=== PATIENT | male | born 1985 | race Caucasian/White ===

== ENCOUNTER 2018-10-04 23:00 | Emergency (ER) | payer SELFPAY ==
[2018-10-04 23:09] VITALS: BP 149/75; TEMP 98.3; BMI 26.0
--- NOTE | 2018-10-04 23:36 | PDOC ---
History of Present Illness - General Chief Complaint: Redness To Affected Area Stated Complaint: KNEE PAIN Time Seen by Provider: 10/04/18 23:16 History Source: Patient - History of Present Illness Initial Comments: 10/04/18 23:40 32 year old male c/o redness and swelling x2 days to the right knee after a mosquito bite to the area. patient denies injury of trauma to the area. denies fever/ chills, streaking no pmhx Past History - Past Medical History Allergies/Adverse Reactions: Allergies Allergy/AdvReac Type Severity Reaction Status Date / Time Penicillins Allergy Verified 10/04/18 23:07 Home Medications: Ambulatory Orders Acetaminophen [Tylenol -] 1,000 mg PO Q6H PRN 10/04/18 Clindamycin [Cleocin -] 300 mg PO Q6HPO #40 capsule 10/05/18 Ibuprofen [Motrin -] 600 mg PO TID PRN #20 tablet 10/05/18 COPD: No Other medical history: chronic back problems - Suicide/Smoking/Psychosocial Hx Smoking History: Former smoker Have you smoked in the past 12 months: Yes If you are a former smoker, when did you quit?: 08/26 Information on smoking cessation initiated: No Review of Systems - Review of Systems Able to Perform ROS?: Yes Is the patient limited Nepali proficient: No Integumentary: Yes: Erythema (right knee erythema, warm and tender to touch) *Physical Exam - Vital Signs Last Vital Signs Temp Pulse Resp BP Pulse Ox 98.3 F 105 H 18 149/75 96 10/04/18 23:07 10/04/18 23:07 10/04/18 23:07 10/04/18 23:07 10/04/18 23:07 - Physical Exam General Appearance: Yes: Appropriately Dressed Cardiovascular: positive: Regular Rhythm, Regular Rate. negative: Tachycardia Musculoskeletal: positive: Normal Inspection, Other (full rom, right knee erythema, warm to touch) Extremity: positive: Normal Capillary Refill, Normal Inspection, Normal Range of Motion (able to move extremity without difficulty) Integumentary: positive: Normal Color, Dry, Warm Neurologic: positive: Fully Oriented, Alert, Normal Mood/Affect Medical Decision Making - Medical Decision Making 10/04/18 23:54 A: cellulitis to right knee P: xray skin marked patient to return in 2 days for a wound check. po antibiotics. *DC/Admit/Observation/Transfer Diagnosis at time of Disposition: Cellulitis of right knee - Discharge Dispostion Disposition: HOME - Prescriptions Prescriptions: Clindamycin [Cleocin -] 300 mg PO Q6HPO #40 capsule Ibuprofen [Motrin -] 600 mg PO TID PRN #20 tablet PRN Reason: Pain - Referrals - Patient Instructions Printed Discharge Instructions: DI for Knee Pain Additional Instructions: apply warm compress to the area take clindamycin as prescribed. return to the ER in 2 days for a wound check return immediately if you are having increased redness, streaking fever/ chills , unable to move your knee - Post Discharge Activity
[2018-10-04] MEDS ORDERED: IBUPROFEN 400 MG TABLET (FP) PO ONE (23:43)
[2018-10-05] MEDS ORDERED: CLINDAMYCIN HCL 300 MG CAPSULE PO ONE (00:08)
[2018-10-05 00:45] VITALS: PULSE 81
[2018-10-05] MEDS ORDERED: CLINDAMYCIN HCL 150 MG CAPSULE (FP) ONE (00:49)
[2018-10-05] MEDS ORDERED: IBUPROFEN 400 MG TABLET (FP) PO ONE (00:50)
--- NOTE | 2018-10-05 00:55 | PDOC ---
*Physical Exam - Vital Signs Last Vital Signs Temp Pulse Resp BP Pulse Ox 98.3 F 81 18 149/75 98 10/05/18 00:42 10/05/18 00:42 10/05/18 00:42 10/04/18 23:07 10/05/18 00:42 - Physical Exam Comments: 10/05/18 00:53 agree w/ PA exam. Medical Decision Making - Medical Decision Making 10/05/18 00:54 Cellulitis overlying knee, healthy 32 y/o male full rom no concern for joint involvement, no systemic symptoms home w/ clinda, cellulitis marked w/ pen, return to ED 48 hrs for wound check *DC/Admit/Observation/Transfer Diagnosis at time of Disposition: Cellulitis of right knee - Discharge Dispostion Disposition: HOME - Prescriptions Prescriptions: Clindamycin [Cleocin -] 300 mg PO Q6HPO #40 capsule Ibuprofen [Motrin -] 600 mg PO TID PRN #20 tablet PRN Reason: Pain - Referrals - Patient Instructions Printed Discharge Instructions: DI for Knee Pain Additional Instructions: apply warm compress to the area take clindamycin as prescribed. return to the ER in 2 days for a wound check return immediately if you are having increased redness, streaking fever/ chills , unable to move your knee - Post Discharge Activity
== END 2018-10-05 01:46 | disposition home or self-care (01) ==
LOC: JER 23:00
DX: S80.261A Insect bite (nonvenomous), right knee, initial encounter (principal); L03.115 Cellulitis of right lower limb; W57.XXXA Bitten or stung by nonvenomous insect and other nonvenomous arthropods, initial encounter; Y93.89 Activity, other specified; Y92.89 Other specified places as the place of occurrence of the external cause; Y99.8 Other external cause status
CPT/HCPCS: 73562-TC-RT-FY; 99281-25

== ENCOUNTER 2019-03-13 01:33 | Observation (INO) | payer OTHER ==
[2019-03-13 02:10] VITALS: BMI 29.7
[2019-03-13] MEDS ORDERED: ASPIRIN 81 MG CHEWABLE TABLETS PO ONE (02:42)
[2019-03-13] MEDS ORDERED: ASPIRIN 81 MG CHEWABLE TABLETS ONE (02:52)
--- NOTE | 2019-03-13 03:11 | PDOC ---
History of Present Illness - General Chief Complaint: Chest Pain Stated Complaint: CHEST PAIN Time Seen by Provider: 03/13/19 02:24 - History of Present Illness Initial Comments: 03/13/19 02:58 The patient is a 33 y/o male with a PMHx of HTN who presents to our ED c/o chest pain. Pain started around 11:30 p.m. yesterday evening after smoking hookah and is L sided, intermittent, sharp w/o radiation. Associated with shortness of breath no lightheadedness, palpitations, nausea, diaphoresis. H/o smoking starting at age [age]. Family cardiac history significant for paternal from [place] at age 61. No previous stress testing. Patient was on an anti- hypertensive between September and January 2019 however states his primar y Allergy: Penicillin - the patient states since his mother was allergic to penicillin he has never had penicillin. Past History - Past Medical History Allergies/Adverse Reactions: Allergies Allergy/AdvReac Type Severity Reaction Status Date / Time Penicillins Allergy Verified 03/13/19 02:10 Home Medications: Ambulatory Orders Acetaminophen [Tylenol -] 1,000 mg PO Q6H PRN 10/04/18 Clindamycin [Cleocin -] 300 mg PO Q6HPO #40 capsule 10/05/18 Ibuprofen [Motrin -] 600 mg PO TID PRN #20 tablet 10/05/18 COPD: No - Psycho Social/Smoking Cessation Hx Smoking History: Current some day smoker Have you smoked in the past 12 months: Yes If you are a former smoker, when did you quit?: 08/26 Information on smoking cessation initiated: No Hx Alcohol Use: No Drug/Substance Use Hx: No Review of Systems - Review of Systems Constitutional: No: Chills, Fever HEENTM: No: Blurred Vision, Recent change in vision Respiratory: No: Cough, Shortness of Breath Cardiac (ROS): Yes: Chest Pain. No: Lightheadedness, Palpitations ABD/GI: No: Constipated, Diarrhea *Physical Exam - Vital Signs Last Vital Signs Temp Pulse Resp BP Pulse Ox 98.5 F 88 16 151/92 03/13/19 01:35 03/13/19 01:35 03/13/19 01:35 03/13/19 01:35 - Physical Exam General Appearance: Yes: Nourished, Appropriately Dressed HEENT: positive: Normal Voice, Hearing Grossly Normal Neck: positive: Trachea midline, Supple Respiratory/Chest: positive: Lungs Clear, Normal Breath Sounds Cardiovascular: positive: S1, S2 Gastrointestinal/Abdominal: positive: Normal Bowel Sounds, Soft Extremity: positive: Normal Capillary Refill, Normal Inspection Integumentary: positive: Normal Color, Dry, Warm Neurologic: positive: ship engineer II-XII NML intact, Fully Oriented, Alert Heart Score/ECG Review - ECG Impressions Comment:: 03/13/19 06:34 NSR HR 82, normal intervals, no deviations, no DION/STD/TWI ED Treatment Course - LABORATORY CBC & Chemistry Diagram: 03/13/19 03:00 03/13/19 03:00 - RADIOLOGY Radiology Studies Ordered: Category Date Time Status CHEST X-RAY PORTABLE* [RAD] Stat Radiology 03/13/19 02:43 Ordered - Medications Given in the ED: ED Medications Discontinued Medications Generic Name Dose Route Start Last Admin Trade Name Freq PRN Reason Stop Dose Admin Aspirin 162 mg 03/13/19 02:42 03/13/19 02:54 Asa - PO 03/13/19 02:43 162 mg ONCE ONE Administration Medical Decision Making - Medical Decision Making 03/13/19 03:53 33 y/o male with acute onset of chest pain @ 11:30 pm yesterday evening. Daily smoker, HTN (untreated) Heart Score 3 EKG non-ischemic Will obtain Troponin x2. 03/13/19 06:09 Troponin (-) x1 03/13/19 06:50 Patient reassessed @ bedside 2 minutes of chest pain around 6:30 a.m. 03/13/19 06:55 As patient continues to have CP, will admit for r/o ACS. Patient and patient's partner @ bedside counseled on plan of care, amenable to admission. Microblog to [facility] Admitting Patient signed out to Dr. Desai (PGY-3) and Dr. Espinoza (Attending) Discharge - Discharge Information Problems reviewed: Yes Clinical Impression/Diagnosis: Chest pain Condition: Fair Disposition: HOME - Admission No - Follow up/Referral - Patient Discharge Instructions Additional Instructions: Please make an appointment to follow-up with a primary care doctor in the next 1 week. Your care is not compete until you are evaluated by a primary care doctor. We have provided a referral or you can call your insurance company for a list of doctors. Your care is not complete until you are evaluated by primary care. Return to the Emergency Department for any new/worsening or concerning symptoms. - Post Discharge Activity
[2019-03-13 04:17] LABS: BASO % 0.7 % (0-2.0); EOS % 0.4 % (0-4.5); HEMATOCRIT 42.4 % (35.4-49); HEMOGLOBIN 14.3 GM/dL (11.7-16.9); LYMPH % 30.1 % (8-40); MCH 29.1 pg (25.7-33.7); MCHC 33.7 g/dl (32.0-35.9); MEAN CELL VOLUME 86.2 fl (80-96); MEAN PLT VOLUME 10.3 fl (7.5-11.1); MONO % 9.3 % (3.8-10.2); NEUT % 59.5 % (42.8-82.8); PLATELET COUNT 174 K/MM3 (134-434); RBC 4.92 M/mm3 (4.00-5.60); WHITE BLOOD COUNT 8.7 K/mm3 (4.0-10.0)
--- NOTE | 2019-03-13 04:21 | PDOC ---
Attending Attestation - Resident Resident Name: LeticiaVioletta - ED Attending Attestation I have performed the following: I have examined & evaluated the patient, The case was reviewed & discussed with the resident, I agree w/resident's findings & plan, Exceptions are as noted - HPI HPI: 03/13/19 04:16 33yoM hx of HTN, cig smoking presnets c/o acute onset of chest pain and sob immediatley after smoking hookah tonight. No diahpresis, + mild nausea. Pain was constant x 2hrs and then lessened and became slight, intermittent. Now feeling better. no PMd, just moved back from [place]. - Physicial Exam PE: 03/13/19 04:18 NAD RRR CTABL soft NTND A&O x 3 - Medical Decision Making 03/13/19 04:19 33yoM presnets c/o acute onset of chest pain after smoking hookah, also assoc w / SOB. - labs - ekg - cxr - asa - 2tn -> if neg can DC w/referral to PMD to initiate care here in [place].
[2019-03-13 04:56] LABS: ALBUMIN 3.8 g/dl (3.4-5.0); ALK PHOS 65 U/L (45-117); ANION GAP 8 MMOL/L (8-16); BILIRUBIN,TOTAL 0.6 mg/dL (0.2-1); BLOOD UREA NITROGEN 14.1 mg/dL (7-18); CALCIUM 9.2 mg/dL (8.5-10.1); CHLORIDE 108 mmol/L (98-107); CO2 26 mmol/L (21-32); GLUCOSE,RANDOM 97 mg/dL (74-106); POTASSIUM 3.6 mmol/L (3.5-5.1); SGOT/AST 24 U/L (15-37); SGPT/ALT 45 U/L (13-61); SODIUM 142 mmol/L (136-145); TOT PROT 7.4 g/dl (6.4-8.2)
[2019-03-13 04:58] LABS: INR 0.97 (0.83-1.09); PROTHROMBIN TIME (PATIENT) 11.5 SEC (9.7-13.0)
[2019-03-13 05:00] LABS: ACTIVATED PTT 29.8 SECONDS (25.2-36.5)
--- NOTE | 2019-03-13 08:13 | PDOC ---
*Physical Exam - Vital Signs Last Vital Signs Temp Pulse Resp BP Pulse Ox 98.5 F 61 19 111/69 99 03/13/19 01:35 03/13/19 05:00 03/13/19 05:00 03/13/19 05:00 03/13/19 05:00 ED Treatment Course - LABORATORY CBC & Chemistry Diagram: 03/13/19 03:00 03/13/19 03:00 - ADDITIONAL ORDERS Additional order review: Laboratory Results 03/13/19 03/13/19 03/13/19 06:10 03:00 03:00 PT with INR INR PTT (Actin FS) Sodium 142 Potassium 3.6 Chloride 108 H Carbon Dioxide 26 Anion Gap 8 BUN 14.1 Creatinine 1.0 Est GFR (CKD-EPI)AfAm 114.91 Est GFR (CKD-EPI)NonAf 99.15 Random Glucose 97 Calcium 9.2 Magnesium 2.2 Total Bilirubin 0.6 AST 24 ALT 45 Alkaline Phosphatase 65 Creatine Kinase 307 320 H Creatine Kinase Index No Result Required. CK-MB (CK-2) < 1.0 Troponin I < 0.02 < 0.02 Total Protein 7.4 Albumin 3.8 03/13/19 03:00 PT with INR 11.50 INR 0.97 PTT (Actin FS) 29.8 Sodium Potassium Chloride Carbon Dioxide Anion Gap BUN Creatinine Est GFR (CKD-EPI)AfAm Est GFR (CKD-EPI)NonAf Random Glucose Calcium Magnesium Total Bilirubin AST ALT Alkaline Phosphatase Creatine Kinase Creatine Kinase Index CK-MB (CK-2) Troponin I Total Protein Albumin 03/13/19 03:00 RBC 4.92 MCV 86.2 MCHC 33.7 RDW 14.0 MPV 10.3 Neutrophils % 59.5 Lymphocytes % 30.1 Monocytes % 9.3 Eosinophils % 0.4 Basophils % 0.7 - Medications Given in the ED: ED Medications Discontinued Medications Generic Name Dose Route Start Last Admin Trade Name Freq PRN Reason Stop Dose Admin Aspirin 162 mg 03/13/19 02:42 03/13/19 02:54 Asa - PO 03/13/19 02:43 162 mg ONCE ONE Administration Medical Decision Making - Medical Decision Making 03/13/19 08:[address] Kelly. Patient is 33M here today with chest pain. Trop neg, ekg normal. Pending admission 2/2 repeat episode of chest pain at 6: 30. Given aspirin. Signed out to Dr Zambrano to Dr Combs's service. Discharge - Discharge Information Problems reviewed: Yes Clinical Impression/Diagnosis: Chest pain Condition: Fair Disposition: HOME - Admission Yes - Follow up/Referral - Patient Discharge Instructions Additional Instructions: Please make an appointment to follow-up with a primary care doctor in the next 1 week. Your care is not compete until you are evaluated by a primary care doctor. We have provided a referral or you can call your insurance company for a list of doctors. Your care is not complete until you are evaluated by primary care. Return to the Emergency Department for any new/worsening or concerning symptoms. - Post Discharge Activity
--- NOTE | 2019-03-13 08:17 | HP ---
CHIEF COMPLAINT: Chest Pain PCP: None HISTORY OF PRESENT ILLNESS: Pt. is a 33 y.o. M w/ PMHx. of HTN (currently not on therapy) presents for sudden onset of chest pain last night at 11:30 while playing pool and smoking Hookah. Pt. states that he had pain that radiated to his left arm, numbness/tingling in his right arm, pain in his thigh and shortness of breath. Pt. states that the pain was sharp and constant for the first few hours but gradually went away. Pt. states this has happened before but he has never had it worked up and that "this is the wake up call I need." Pt. states at the time of chest pain that it was tender to palpation, and that he also had a headache. Pt. was never diaphoretic. Pt states that he feels better now and denies any acute complaints. Pt. states that at ~6:30 AM he had a seconds episode of chest pain that has since resolved. Pt. was not active during the 2nd episode of chest pain. Pt. states that he has strong family history of heart disease and OR on his father's side of family, the youngest of which started at 62 y.o. Pt. 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 Pt. denies currently having a PCP. ER course was notable for: (1)EKG, Trop, ASA 162 (2) CBC, CMP (3) Recent Travel: Recently moved to [facility] PAST MEDICAL HISTORY: HTN PAST SURGICAL HISTORY: None Social History: Smoking: Smoked from age 13 - August 2018 2PPD, Pt. currently Vapes and smoked Hookah Alcohol: Occasional drink at special events Drugs: Medical Marijuana card, states "tries to smoke at least 1x per week" Allergies Penicillins Allergy (Verified 03/13/19 02:10)- Pt. states his mother has the allergy, he has never had Penicillin. HOME MEDICATIONS: None REVIEW OF SYSTEMS As above PHYSICAL EXAMINATION Vital Signs - 24 hr 03/13/19 03/13/19 01:35 05:00 Temperature 98.5 F Pulse Rate 88 Pulse Rate [ 61 Left Radial] Respiratory 16 19 Rate Blood Pressure 151/92 Blood Pressure 111/69 [Right Arm] O2 Sat by Pulse 99 Oximetry (%) GENERAL: Awake, alert, and fully oriented, in no acute distress. HEAD: Normal with no signs of trauma. LUNGS: Breath sounds equal, clear to auscultation bilaterally. No wheezes, and no crackles. No accessory muscle use. HEART: Regular rate and rhythm, normal S1 and S2 without murmur, rub or gallop. Non-tender to palpation. MUSCULOSKELETAL: Normal range of motion at all joints. No bony deformities or tenderness. UPPER EXTREMITIES: 2+ radial pulses, warm, well-perfused. No cyanosis. No clubbing. No peripheral edema. LOWER EXTREMITIES: 2+ dorsal pedal pulses, warm, well-perfused. No calf tenderness. No peripheral edema. NEUROLOGICAL: No focal deficits PSYCHIATRIC: Cooperative. Good eye contact. Appropriate mood and affect. SKIN: Warm, dry, normal turgor, no rashes or lesions noted, normal capillary refill. Laboratory Results - last 24 hr 03/13/19 03/13/19 03/13/19 03:00 03:00 03:00 WBC 8.7 RBC 4.92 Hgb 14.3 Hct 42.4 MCV 86.2 MCH 29.1 MCHC 33.7 RDW 14.0 Plt Count 174 MPV 10.3 Absolute Neuts (auto) 5.2 Neutrophils % 59.5 Lymphocytes % 30.1 Monocytes % 9.3 Eosinophils % 0.4 Basophils % 0.7 Nucleated RBC % 0 PT with INR 11.50 INR 0.97 PTT (Actin FS) 29.8 Sodium 142 Potassium 3.6 Chloride 108 H Carbon Dioxide 26 Anion Gap 8 BUN 14.1 Creatinine 1.0 Est GFR (CKD-EPI)AfAm 114.91 Est GFR (CKD-EPI)NonAf 99.15 Random Glucose 97 Calcium 9.2 Magnesium Total Bilirubin 0.6 AST 24 ALT 45 Alkaline Phosphatase 65 Creatine Kinase 320 H Creatine Kinase Index No Result Required. CK-MB (CK-2) < 1.0 Troponin I < 0.02 Total Protein 7.4 Albumin 3.8 03/13/19 03/13/19 03:00 06:10 WBC RBC Hgb Hct MCV MCH MCHC RDW Plt Count MPV Absolute Neuts (auto) Neutrophils % Lymphocytes % Monocytes % Eosinophils % Basophils % Nucleated RBC % PT with INR INR PTT (Actin FS) Sodium Potassium Chloride Carbon Dioxide Anion Gap BUN Creatinine Est GFR (CKD-EPI)AfAm Est GFR (CKD-EPI)NonAf Random Glucose Calcium Magnesium 2.2 Total Bilirubin AST ALT Alkaline Phosphatase Creatine Kinase 307 Creatine Kinase Index CK-MB (CK-2) Troponin I < 0.02 Total Protein Albumin ASSESSMENT/PLAN: Pt. is a 33 y.o. M w/ PMHx. of HTN (currently not on therapy) presents for sudden onset of chest pain last night at 11:30 while playing pool and smoking Hookah. #Chest Pain R/o ACS Trop Negtive x 2, f/u Final Trop EKG unremarkable, NSR, normal intervals, no ST changes, no TWI f/u Exercise Stress test advised to disconitnue smokinig, will provide nicoine gum and/or patches on discharge Outpatient Cardiology f/u PCP f/u #FEN NPO monitor electrolytes and replete as needed NPO for stress test #DVT Ppx. Early ambulation Visit type - Emergency Visit Emergency Visit: Yes ED Registration Date: 03/13/19 Care time: The patient presented to the Emergency Department on the above date and was hospitalized for further evaluation of their emergent condition. - New Patient This patient is new to me today: Yes Date on this admission: 03/13/19 - Critical Care Critical Care patient: No ATTENDING PHYSICIAN STATEMENT I saw and evaluated the patient. I reviewed the resident's note and discussed the case with the resident. I agree with the resident's findings and plan as documented. SUBJECTIVE: OBJECTIVE: ASSESSMENT AND PLAN:
--- NOTE | 2019-03-13 09:11 | EKG ---
Test Reason : Blood Pressure : / mmHG Vent. Rate : 082 BPM Atrial Rate : 082 BPM P-R Int : 150 ms QRS Dur : 100 ms QT Int : 388 ms P-R-T Axes : 050 035 026 degrees QTc Int : 453 ms NORMAL SINUS RHYTHM NORMAL ECG WHEN COMPARED WITH ECG OF 15-AUG-2008 15:00, NO SIGNIFICANT CHANGE WAS FOUND Confirmed by Víctor Washington ([id number]) on 03/13/2019 9:11:21 AM Referred By: Confirmed By:Víctor Washington
--- NOTE | 2019-03-13 09:28 | ECHO ---
Name: YULISSA VANEGAS Exam:Adult Echocardiogram Study Date: 03/13/2019 08:49 AM Age: 33 yrs Reason For Study: Chest pain Height: 71 in Weight: 212 lb BSA: 2.2 m2 MMode/2D Measurements & Calculations IVSd: 0.98 cm Ao root diam: 3.2 cm LVIDd: 4.8 cm LA dimension: 3.1 cm LVIDs: 3.5 cm LVPWd: 1.2 cm LVPWs: 1.6 cm EDV(Teich): 109.7 ml ESV(Teich): 49.3 ml LVOT diam: 2.1 cm RV S Lee: 12.0 cm/sec Doppler Measurements & Calculations MV E max lee: 66.5 cm/sec Ao V2 max: 99.5 cm/sec MV A max lee: 41.7 cm/sec Ao max P.0 mmHg MV E/A: 1.6 MV dec time: 0.12 sec DARRIAN(V,D): 3.0 cm2 LV V1 max P.1 mmHg PA V2 max: 107.6 cm/sec LV V1 max: 87.8 cm/sec PA max P.6 mmHg Med Peak E' Lee: 9.7 cm/sec Med E/e': 6.9 Lat Peak E' Lee: 13.3 cm/sec Lat E/e': 5.0 Procedure Study Quality: Fair. Left Ventricle The left ventricular size, thickness and function are normal. The left ventricular ejection fraction is normal. Ejection Fraction = 55%. Left Ventricular Filling pattern is normal for age. Right Ventricle The right ventricle is normal size. The right ventricular systolic function is normal. Atria Normal left and right atrial size and function. Mitral Valve The mitral valve leaflets appear normal. There is no evidence of stenosis, fluttering, or prolapse. T here is trace mitral regurgitation. Tricuspid Valve The tricuspid valve is normal. Aortic Valve The aortic valve is not well visualized. The aortic valve is normal in structure and function. Pulmonic Valve The pulmonic valve is not well seen, but is grossly normal. Great Vessels The aortic root is normal size. Pericardium/Pleura There is no pericardial effusion. Interpretation Summary This was essentially a normal study. Víctor Washington 03/13/2019 09:28 AM
--- NOTE | 2019-03-13 15:13 | TRE ---
Protocol Name : FRANCHESCA Max Work Load (METS*10) : 99 Time In Exercise Phase : 00:08:00 Max. Systolic BP : 178 mmHg Max Diastolic BP : 80 mmHg Max Heart Rate : 164 BPM Max Predicted Heart Rate : 188 BPM Attending Physician : MARIAH Reason For Termination : Target Heart Rate Achieved Reason for Test : CP Stress Protocol : FRANCHESCA Rest HR : 87 BPM PeakEx METs : 9.9 METS Arrhythmias : No Arrhythmias Resting ECG : Normal Recovery ECG Response (OLD) : Overall Impression : Normal stress test Chest Pain : No Chest Pain HR Response To Exercise : Normal Overall HR Response To Exercise BP Response To Exercise : Normal Resting BP with Appropriate Response Functional Capacity : moderately decreased (20% to 30%) Diagnosis : 1. NEGATIVE STRESS TEST 2. APPROPRIATE BLOOD PRESSURE RESPONSE 3. FAIR EXERCISE TOLERANCE AND CAPACITY. PATIENT EXERCISED 8 MIN INTO STAGE 4 FRANCHESCA PROTOCOL AND ACHIEVED 87% OF MPTHR 4. PATIENT REMAINED ASYMPTOMATIC. NO ECG ABNORMALITIES WERE SEEN Confirmed by MARY LEMUS MD ([id number]) on 03/13/2019 3:13:36 PM
--- NOTE | 2019-03-13 15:57 | DS ---
Physical Exam: SUBJECTIVE: Patient seen and examined. Please see HPI. OBJECTIVE: Vital Signs Period Temp Pulse Resp BP Sys/Elizabeth Pulse Ox Last 24 Hr 98.5 F 61-88 16-19 111-151/69-92 99 PHYSICAL EXAM Same as H & P LABS Laboratory Results - last 24 hr 03/13/19 03/13/19 03/13/19 03:00 03:00 03:00 WBC 8.7 RBC 4.92 Hgb 14.3 Hct 42.4 MCV 86.2 MCH 29.1 MCHC 33.7 RDW 14.0 Plt Count 174 MPV 10.3 Absolute Neuts (auto) 5.2 Neutrophils % 59.5 Lymphocytes % 30.1 Monocytes % 9.3 Eosinophils % 0.4 Basophils % 0.7 Nucleated RBC % 0 PT with INR 11.50 INR 0.97 PTT (Actin FS) 29.8 Sodium 142 Potassium 3.6 Chloride 108 H Carbon Dioxide 26 Anion Gap 8 BUN 14.1 Creatinine 1.0 Est GFR (CKD-EPI)AfAm 114.91 Est GFR (CKD-EPI)NonAf 99.15 Random Glucose 97 Calcium 9.2 Magnesium Total Bilirubin 0.6 AST 24 ALT 45 Alkaline Phosphatase 65 Creatine Kinase 320 H Creatine Kinase Index No Result Required. CK-MB (CK-2) < 1.0 Troponin I < 0.02 Total Protein 7.4 Albumin 3.8 03/13/19 03/13/19 03/13/19 03:00 06:10 09:25 WBC RBC Hgb Hct MCV MCH MCHC RDW Plt Count MPV Absolute Neuts (auto) Neutrophils % Lymphocytes % Monocytes % Eosinophils % Basophils % Nucleated RBC % PT with INR INR PTT (Actin FS) Sodium Potassium Chloride Carbon Dioxide Anion Gap BUN Creatinine Est GFR (CKD-EPI)AfAm Est GFR (CKD-EPI)NonAf Random Glucose Calcium Magnesium 2.2 Total Bilirubin AST ALT Alkaline Phosphatase Creatine Kinase 307 Creatine Kinase Index No Result Required. CK-MB (CK-2) < 1.0 Troponin I < 0.02 < 0.02 Total Protein Albumin HOSPITAL COURSE: Date of Admission:03/13/19 Date of Discharge: 03/13/19 Pt. is a 33 y.o. M w/ PMHx. of HTN( not currently on medication as BP has self- resolved) presents after episode of chest pain, was noted to have a repeat episode in ED. Pt. was monitored on telemetry, had 3 negative troponins, unremarkable EKG, negative echo and negative exercise stress test. Advised Pt. to quit smoking and to follow up with physicians as described below. Hospital course discussed and agreed upon with Pt., family and hospital staff. Minutes to complete discharge: 25 Discharge Summary Problems reviewed: Yes Reason For Visit: CHEST PAIN Condition: Improved - Instructions Diet, Activity, Other Instructions: You came in because you were having chest pain. We imaged your heart with ultrasound both at rest and after activity. The results were negative. We took blood and measured your heart function, the results were negative. We monitored you on cardiac monitoring and did not observe anything immediately concerning. We discussed cessation of smoking. Please STOP smoking. Please follow up with your Primary Care Doctor within 1 week. If you do not have one, we have provided Dr. Carter. please discuss Nicotin replacement options with your PCP at this time. Please follow up with your shipyard helper within 1 week. If you to not have one we have provided Dr. Andre Please return to the ER if you are experiencing chest pain, shortness of breath , or any concerning symptoms. Referrals: Liam Carter MD [Staff Physician] - 1 Week Rohit Andre MD [Staff Physician] - 1 Week Disposition: HOME This patient is new to me today: Yes Date on this admission: 03/13/19 Emergency Visit: Yes ED Registration Date: 03/13/19 Care time: The patient presented to the Emergency Department on the above date and was hospitalized for further evaluation of their emergent condition. Critical Care patient: No - Discharge Referral Referred to [facility] Med P.[facility] No ATTENDING PHYSICIAN STATEMENT I saw and evaluated the patient. I reviewed the resident's note and discussed the case with the resident. I agree with the resident's findings and plan as documented. SUBJECTIVE: OBJECTIVE: ASSESSMENT AND PLAN:
[2019-03-13 17:14] VITALS: BP 128/70; PULSE 75; TEMP 97.8
--- NOTE | 2019-03-13 17:38 | PN ---
Teaching Attending Note Name of Resident: Jett Zambrano ATTENDING PHYSICIAN STATEMENT I saw and evaluated the patient. I reviewed the resident's note and discussed the case with the resident. I agree with the resident's findings and plan as documented. SUBJECTIVE: Chest pain resolved. No palpitations/SOB/cough/sputum/hemoptysis. OBJECTIVE: Afebrile, Hemodynamically Stable. Last Vital Signs Temp Pulse Resp BP Pulse Ox 97.8 F 75 20 128/70 98 03/13/19 16:00 03/13/19 16:00 03/13/19 16:00 03/13/19 16:03/13/19 16:00 HEENT - Atraumatic, Normocephalic. Heart - S1, S2, RRR Lungs - clear to auscultation Abdomen - Soft, non-tender. Bowel Sounds normal Extremities - no edema, no calf tenderness. Laboratory Results - last 24 hr 03/13/19 03/13/19 03/13/19 03:00 03:00 03:00 WBC 8.7 RBC 4.92 Hgb 14.3 Hct 42.4 MCV 86.2 MCH 29.1 MCHC 33.7 RDW 14.0 Plt Count 174 MPV 10.3 Absolute Neuts (auto) 5.2 Neutrophils % 59.5 Lymphocytes % 30.1 Monocytes % 9.3 Eosinophils % 0.4 Basophils % 0.7 Nucleated RBC % 0 PT with INR 11.50 INR 0.97 PTT (Actin FS) 29.8 Sodium 142 Potassium 3.6 Chloride 108 H Carbon Dioxide 26 Anion Gap 8 BUN 14.1 Creatinine 1.0 Est GFR (CKD-EPI)AfAm 114.91 Est GFR (CKD-EPI)NonAf 99.15 Random Glucose 97 Calcium 9.2 Magnesium Total Bilirubin 0.6 AST 24 ALT 45 Alkaline Phosphatase 65 Creatine Kinase 320 H Creatine Kinase Index No Result Required. CK-MB (CK-2) < 1.0 Troponin I < 0.02 Total Protein 7.4 Albumin 3.8 03/13/19 03/13/19 03/13/19 03:00 06:10 09:25 WBC RBC Hgb Hct MCV MCH MCHC RDW Plt Count MPV Absolute Neuts (auto) Neutrophils % Lymphocytes % Monocytes % Eosinophils % Basophils % Nucleated RBC % PT with INR INR PTT (Actin FS) Sodium Potassium Chloride Carbon Dioxide Anion Gap BUN Creatinine Est GFR (CKD-EPI)AfAm Est GFR (CKD-EPI)NonAf Random Glucose Calcium Magnesium 2.2 Total Bilirubin AST ALT Alkaline Phosphatase Creatine Kinase 307 Creatine Kinase Index No Result Required. CK-MB (CK-2) < 1.0 Troponin I < 0.02 < 0.02 Total Protein Albumin ASSESSMENT AND PLAN: 33 year old male with Hx of HTN, presents with a episode of L sided CP that lasted 2 hours, now resolved. Atypical CP, likely musculoskeletal. ECG - NSR, no acute changes Serial TropI x 3. Echo - normal Exercise stress test negative No telemonitoring events. No evidence of ACS/CAD Medically stable for discharge with PCP follow up.
== END 2019-03-13 08:13 | disposition home or self-care (01) ==
LOC: JER 01:33 → JERBED 08:13
DX: R07.89 Other chest pain (principal); I10 Essential (primary) hypertension; F17.210 Nicotine dependence, cigarettes, uncomplicated; Z88.0 Allergy status to penicillin; Z82.49 Family history of ischemic heart disease and other diseases of the circulatory system
CPT/HCPCS: 36415; 71045-TC-FY; 80053; 82550; 82553; 83735; 84484; 85025; 85610; 85730; 93005; 93010; 93017; 93018; 93306-TC; 99283-25; G0378

== ENCOUNTER 2019-03-16 17:24 | Emergency (ER) | payer OTHER ==
[2019-03-16 17:40] VITALS: BP 133/66; PULSE 92; TEMP 99.2; BMI 33.0
--- NOTE | 2019-03-16 18:16 | PDOC ---
History of Present Illness - General Chief Complaint: Urinary Problem Stated Complaint: URINE PROBLEM Time Seen by Provider: 03/16/19 17:45 History Source: Patient Exam Limitations: Clinical Condition - History of Present Illness Initial Comments: 03/16/19 18:12 Patient with no significant past medical history present with complaint of 3- day history of burning with urination, urinary frequency and dysuria. Denies back pains, fever, chills, penile discharge, testicular swelling or pain. Report mild nausea but denies vomiting. Patient has not taken anything for symptoms Is this a multiple visit Asthma Patient?: No Timing/Duration: other (3days) Past History - Past Medical History Allergies/Adverse Reactions: Allergies Allergy/AdvReac Type Severity Reaction Status Date / Time Penicillins Allergy Verified 03/13/19 02:10 Home Medications: Ambulatory Orders Ciprofloxacin [Cipro (Restricted To Id)] 500 mg PO Q12H 7 Days #14 tablet COPD: No - Immunization History Immunization Up to Date: No - Psycho Social/Smoking Cessation Hx Smoking History: Never smoked Have you smoked in the past 12 months: Yes If you are a former smoker, when did you quit?: 08/26 Information on smoking cessation initiated: No Hx Alcohol Use: No Drug/Substance Use Hx: No Review of Systems - Review of Systems Able to Perform ROS?: Yes Is the patient limited [place] proficient: No Constitutional: No: Chills, Fever, Malaise HEENTM: No: Symptoms Reported, See HPI, Eye Pain, Blurred Vision, Tearing, Recent change in vision, Double Vision, Cataracts, Ear Pain, Ocular Prothesis, Ear Discharge, Nose Pain, Nose Congestion, Tinnitus, Nose Bleeding, Hearing Loss , Throat Pain, Throat Swelling, Mouth Pain, Dental Problems, Difficulty Swallowing, Mouth Swelling, Other Respiratory: No: Symptoms reported, See HPI, Cough, Orthopnea, Shortness of Breath, SOB with Exertion, SOB at Rest, Stridor, Wheezing, Productive cough, Hemoptysis, Other Cardiac (ROS): No: Symptoms Reported, See HPI, Chest Pain, Edema, Irregular Heart Rate, Lightheadedness, Palpitations, Syncope, Chest Tightness, Other ABD/GI: Yes: Symptoms Reported, See HPI, Nausea, Abdominal cramping (suprapubic discomfort). No: Vomiting : Yes: Symptoms Reported, See HPI, Burning, Dysuria, Frequency, Urgency. No: Discharge, Hematuria, Testicular Mass, Testicular Swelling, Testicular Pain Musculoskeletal: No: Symptoms Reported All Other Systems: Reviewed and Negative *Physical Exam - Vital Signs Last Vital Signs Temp Pulse Resp BP Pulse Ox 99.2 F 92 H 18 133/66 99 03/16/19 17:34 03/16/19 17:34 03/16/19 17:34 03/16/19 17:34 03/16/19 17:34 - Physical Exam General Appearance: Yes: Nourished, Appropriately Dressed. No: Apparent Distress HEENT: positive: Normal ENT Inspection Neck: positive: Supple Respiratory/Chest: positive: Lungs Clear, Normal Breath Sounds. negative: Respiratory Distress, Accessory Muscle Use Cardiovascular: positive: Regular Rhythm, Regular Rate Gastrointestinal/Abdominal: positive: Normal Bowel Sounds, Tender (mild suprapubic TTP), Flat, Soft. negative: Organomegaly, Distended, Guarding, Rebound, Hepatomegaly, Spleenomegaly Male Genitalia: positive: normal genitalia Musculoskeletal: positive: Normal Inspection. negative: CVA Tenderness Extremity: positive: Normal Capillary Refill, Normal Inspection Integumentary: positive: Normal Color Neurologic: positive: Fully Oriented, Alert, Normal Mood/Affect, Normal Response Medical Decision Making - Medical Decision Making 03/16/19 18:13 Patient with no significant past medical history present with complaint of 3- day history of burning with urination, urinary frequency, suprapubic discomfort and dysuria. Denies back pains, fever, chills, penile discharge, testicular swelling or pain. Report mild nausea but denies vomiting. Patient has not taken anything for symptoms Exam significant for mild suprapubic discomfort otherwise unremarkable exam. No testicular swelling or tenderness. Symptoms likely UTI versus STI. UA, urine culture lab ordered. Urine gonorrhea and chlamydia tests ordered. Treat based on UA results 03/16/19 19:03 UA shows no significant abnormality however given patient with complaint of burning with urination, will treat empirically on Cipro antibiotics pending urine culture results with urology follow-up Discharge - Discharge Information Problems reviewed: Yes Clinical Impression/Diagnosis: Dysuria Condition: Stable Disposition: HOME - Admission No - Additional Discharge Information Prescriptions: Ciprofloxacin [Cipro (Restricted To Id)] 500 mg PO Q12H 7 Days #14 tablet - Follow up/Referral Referrals: Misha Deleon MD [Staff Physician] - - Patient Discharge Instructions Patient Printed Discharge Instructions: DI for Dysuria -- Adult Additional Instructions: Your urine shows mild bacteria. Take prescribed antibiotics and finish. Increase fluid intake. Follow-up referred urologist if symptoms persist for more than 4 days - Post Discharge Activity
[2019-03-16 18:48] LABS: EPI CELLS 1.1 /HPF (0-5/HPF); HYALINE CASTS 3 /lpf (0-8); PH,URINE 5.5 (5.0-8.0); URINE APPEARANCE CLEAR; URINE BACTERIA 2.6 /hpf (NEGATIVE); URINE BILIRUBIN NEGATIVE (NEGATIVE); URINE COLOR YELLOW; URINE GLUCOSE (UA) NEGATIVE (NEGATIVE); URINE KETONE NEGATIVE (NEGATIVE); URINE LEUK ESTERASE NEGATIVE (NEGATIVE); URINE NITRITE NEGATIVE (NEGATIVE); URINE PROTEIN 1+ (NEGATIVE); URINE RBC 1 /hpf (0-4); URINE UROBILINOGEN 0.2 mg/dL (0.2-1.0); URINE WBC 1 /hpf (0-5)
== END 2019-03-16 18:59 | disposition home or self-care (01) ==
LOC: JERFT 17:24
DX: R30.0 Dysuria (principal); R10.30 Lower abdominal pain, unspecified
CPT/HCPCS: 36415; 81003; 87086; 87491; 87591; 99282-25

== ENCOUNTER 2020-01-31 21:35 | Observation (INO) | payer OTHER ==
[2020-01-31] MEDS ORDERED: KETOROLAC TROMETHAMINE 15 MG/ML VIAL IVPUSH ONE (22:55)
[2020-01-31] MEDS ORDERED: diazePAM CARPU-JECT 10 MG/2 ML DISP.SYRIN IVPUSH ONE (22:55)
[2020-01-31] MEDS ORDERED: DEXAMETHASONE SOD PHOSPHATE 10 MG/1 ML VIAL IVPUSH ONE (22:55)
[2020-01-31] MEDS ORDERED: KETOROLAC TROMETHAMINE 15 MG/ML VIAL ONE (23:13)
[2020-01-31] MEDS ORDERED: DEXAMETHASONE SOD PHOSPHATE 10 MG/1 ML VIAL ONE (23:13)
[2020-01-31] MEDS ORDERED: diazePAM CARPU-JECT 10 MG/2 ML DISP.SYRIN ONE (23:13)
[2020-02-01] MEDS ORDERED: morphine CARPU-JECT 4 MG/1 ML DISP.SYRIN IVPUSH ONE (01:14)
[2020-02-01] MEDS ORDERED: ACETAMINOPHEN 1000 MG/100 ML VIAL (NON FORMULARY) IVPB PRN (02:25)
[2020-02-01] MEDS ORDERED: morphine SULFATE 4 MG/ML VIAL ONE (03:30)
[2020-02-01 03:39] LABS: BASO % 0.4 % (0-2.0); EOS % 0.1 % (0-4.5); HEMATOCRIT 43.5 % (35.4-49); HEMOGLOBIN 14.4 GM/dL (11.7-16.9); LYMPH % 13.4 % (8-40); MCH 28.8 pg (25.7-33.7); MCHC 33.1 g/dl (32.0-35.9); MEAN PLT VOLUME 10.8 fl (7.5-11.1); MONO % 2.7 % (3.8-10.2); NEUT % 83.4 % (42.8-82.8); PLATELET COUNT 194 K/MM3 (134-434); RDW 14.2 % (11.9-15.9); WHITE BLOOD COUNT 7.7 K/mm3 (4.0-10.0)
[2020-02-01 03:42] LABS: POTASSIUM 3.9 mmol/L (3.5-5.1)
[2020-02-01 03:44] LABS: ALBUMIN 4.3 g/dl (3.4-5.0); BLOOD UREA NITROGEN 13.6 mg/dL (7-18); CALCIUM 9.7 mg/dL (8.5-10.1)
[2020-02-01 03:49] LABS: BILIRUBIN,TOTAL 1.1 mg/dL (0.2-1); TOT PROT 7.8 g/dl (6.4-8.2)
[2020-02-01] MEDS ORDERED: morphine SULFATE 4 MG/ML VIAL IVPUSH PRN (06:22)
[2020-02-01] MEDS ORDERED: ACETAMINOPHEN INJECTION 100 ML IVPB ONE (11:02)
[2020-02-01 12:17] VITALS: BP 153/97; PULSE 110; TEMP 98
[2020-02-01 13:50] VITALS: BMI 25.4
== END 2020-02-01 14:30 | disposition home or self-care (01) ==
LOC: JER 21:35 → INTOOBSV 02-01 01:16 → JERBED 02-01 01:16 → J7W 02-01 11:52
PROVIDERS: ADMIT Internal Medicine; ATTEND Family Medicine
PROC: 3E033NZ Introduction of Analgesics, Hypnotics, Sedatives into Peripheral Vein, Percutaneous Approach (ICD-10-PCS; principal; 2020-02-01)
PROC: 3E033GC Introduction of Other Therapeutic Substance into Peripheral Vein, Percutaneous Approach (ICD-10-PCS; 2020-02-01)
DX: M54.9 Dorsalgia, unspecified (principal); R26.2 Difficulty in walking, not elsewhere classified; Z20.828 Contact with and (suspected) exposure to other viral communicable diseases; F43.10 Post-traumatic stress disorder, unspecified; G89.29 Other chronic pain; Z88.0 Allergy status to penicillin; Z87.891 Personal history of nicotine dependence
CPT/HCPCS: 36415; 71045-TC-FY; 72128-TC; 72131-TC; 80053; 85025; 93005; 93010; 96374; 96375; 97161-GP; 99285-25; C9803; G0378; J0131; J1100; U0003

== ENCOUNTER 2020-02-14 17:51 | Inpatient (IN) | payer OTHER ==
[2020-02-14 18:03] VITALS: BMI 25.7
[2020-02-14] MEDS ORDERED: ACETAMINOPHEN 500 MG TABLET (FP) PO ONE (20:33)
[2020-02-14] MEDS ORDERED: ACETAMINOPHEN 500 MG TABLET (FP) ONE (21:13)
[2020-02-14 21:25] LABS: BASO % 0.4 % (0-2.0); EOS % 0.1 % (0-4.5); HEMATOCRIT 43.6 % (35.4-49); HEMOGLOBIN 14.6 GM/dL (11.7-16.9); LYMPH % 22.1 % (8-40); MCHC 33.5 g/dl (32.0-35.9); MEAN CELL VOLUME 86.7 fl (80-96); MEAN PLT VOLUME 10.2 fl (7.5-11.1); MONO % 7.8 % (3.8-10.2); NEUT % 69.6 % (42.8-82.8); PLATELET COUNT 200 K/MM3 (134-434); RBC 5.03 M/mm3 (4.00-5.60); RDW 14.3 % (11.9-15.9); WHITE BLOOD COUNT 11.1 K/mm3 (4.0-10.0)
[2020-02-14 21:39] LABS: ALBUMIN 4.2 g/dl (3.4-5.0); BLOOD UREA NITROGEN 10.8 mg/dL (7-18); CALCIUM 9.8 mg/dL (8.5-10.1)
[2020-02-14 21:43] LABS: BILIRUBIN,TOTAL 0.8 mg/dL (0.2-1)
[2020-02-14 21:44] LABS: TOT PROT 7.8 g/dl (6.4-8.2)
[2020-02-14 23:01] LABS: PLATELET ESTIMATE NORMAL
[2020-02-15] MEDS ORDERED: DEXTROSE 5%-0.45% SALINE 1,000 ML IV SCH (00:45)
[2020-02-15] MEDS ORDERED: ACETAMINOPHEN INJECTION 100 ML IVPB ONE ×2 (04:45→10:50)
[2020-02-15] MEDS: ACETAMINOPHEN 1000 MG/100 ML BAG IVPB PRN ×2 (04:52→10:49)
[2020-02-15 05:51] LABS: PH,URINE 5.5 (5.0-8.0); URINE APPEARANCE CLEAR; URINE BILIRUBIN NEGATIVE (NEGATIVE); URINE COLOR YELLOW; URINE GLUCOSE (UA) NEGATIVE (NEGATIVE); URINE KETONE 1+ (NEGATIVE); URINE LEUK ESTERASE NEGATIVE (NEGATIVE); URINE NITRITE NEGATIVE (NEGATIVE); URINE PROTEIN TRACE (NEGATIVE); URINE UROBILINOGEN 0.2 mg/dL (0.2-1.0)
[2020-02-15 07:28] LABS: BASO % 0.4 % (0-2.0); EOS % 0.3 % (0-4.5); HEMATOCRIT 41.3 % (35.4-49); HEMOGLOBIN 14.2 GM/dL (11.7-16.9); LYMPH % 28.3 % (8-40); MCH 29.6 pg (25.7-33.7); MCHC 34.3 g/dl (32.0-35.9); MEAN CELL VOLUME 86.4 fl (80-96); MEAN PLT VOLUME 9.8 fl (7.5-11.1); PLATELET COUNT 177 K/MM3 (134-434); RBC 4.78 M/mm3 (4.00-5.60); RDW 14.4 % (11.9-15.9); WHITE BLOOD COUNT 8.4 K/mm3 (4.0-10.0)
[2020-02-15 07:45] LABS: ALBUMIN 3.9 g/dl (3.4-5.0); CALCIUM 9.4 mg/dL (8.5-10.1)
[2020-02-15 07:46] LABS: BLOOD UREA NITROGEN 12.2 mg/dL (7-18)
[2020-02-15 07:49] LABS: CREATININE 0.9 mg/dL (0.55-1.3)
[2020-02-15 07:50] LABS: BILIRUBIN,TOTAL 0.9 mg/dL (0.2-1); TOT PROT 7.2 g/dl (6.4-8.2)
[2020-02-15 11:28] VITALS: TEMP 97.9
[2020-02-15] MEDS ORDERED: POLYETHYLENE GLYCOL 3350 119 GM BTL PO SCH (13:15)
[2020-02-15 13:40] VITALS: BP 136/88; PULSE 64
== END 2020-02-15 14:20 | disposition home or self-care (01) | DRG 244 ==
LOC: JER 17:51 → JERBED 02-15 00:02
PROVIDERS: ADMIT Internal Medicine; ATTEND Family Medicine
DX: K57.90 Diverticulosis of intestine, part unspecified, without perforation or abscess without bleeding (principal); R10.31 Right lower quadrant pain; K59.00 Constipation, unspecified; M54.5 Low back pain; F43.10 Post-traumatic stress disorder, unspecified
CPT/HCPCS: 36415; 71045-TC-FY; 74177-TC; 80053; 81003; 82272; 85025; 87086; 93005; 93010; 99285-25; C9803; J0131; U0003